=== PATIENT | female | born 1945 | race Caucasian/White ===

== ENCOUNTER 2017-12-31 01:34 | Observation (INO) | payer MEDICARE, OTHER ==
--- NOTE | 2017-12-27 19:41 | HISTORY AND PHYSICAL ---
DATE OF ADMISSION: December 31, 2017 IDENTIFICATION AND CHIEF COMPLAINT Livia is a 72-year-old woman with the chief complaint of right knee pain. HISTORY OF PRESENT ILLNESS The patient has a longstanding history of knee arthritis, progressively painful and debilitating, refractory to conservative care. Surgery is indicated to relieve symptoms after failure of nonoperative measures. PAST MEDICAL HISTORY 1. Hypertension. 2. Chronic renal insufficiency. PAST SURGICAL HISTORY Notable for ankle surgery. FAMILY HISTORY Notable for mother with stroke. SOCIAL HISTORY Negative for tobacco and alcohol use. ALLERGIES None. CURRENT MEDICATIONS 1. Benazepril 5 mg p.o. q. day. 2. Furosemide 40 mg p.o. b.i.d. 3. Allopurinol 100 mg p.o. q. day. 4. Gemfibrozil 600 mg b.i.d. 5. Various vitamins. 6. A baby aspirin a day. PHYSICAL EXAMINATION GENERAL: Healthy female. HEENT: Normocephalic, atraumatic. NECK: Supple. LUNGS: Clear. HEART: Regular. ABDOMEN: Soft. ORTHOPEDIC: The knee is stiff. She has an effusion present. Gross stability is good. Extensor function is intact. Radiographs demonstrate end-stage arthritis. ASSESSMENT Right knee degenerative joint disease, progressively painful and debilitating, refractory to conservative care. PLAN Per patient request, we are going to proceed with knee replacement. The nature of this procedure, risks, benefits, and anticipated rehab course were reviewed. The risks of the procedure include, but are not limited to , major medical or anesthetic complication, infection, neurovascular injury, blood transfusion, stiffness, scarring, fracture, tendon rupture, instability, implant loosening, migration, or failure, persistent or recurrent pain, need for additional surgery, and other unforeseen. She understands and wishes to proceed. Signed permit is placed in chart. No guarantees given or implied. [facility] CENTERDennis
[2017-12-30 13:28] LABS: INR 1.01
[2017-12-31] VITALS (10 sets, daily range): BP systolic 115–143; BP diastolic 55–77
[~2017-12-31] VITALS: Ht 160 cm; Wt 103.0 kg
[~2017-12-31 01:34] MED LIST: ALLO-119 PO; ASPI-1471 PO; BENA5TAB32 PO; FURO-45 PO; GEMF600T91 PO; POTA10CA40 PO; TRAM-420 PO
[2017-12-31] MEDS: NORMOSOL R SOLN(*) 1000 ML BAG 1,000 ML IV PRN ×2 (10:46→11:51)
[2017-12-31] MEDS ORDERED: LIDOCAINE 2% IV 100 MG/5ML SYR ONE (10:48)
[2017-12-31] MEDS ORDERED: fentaNYL CITR 100 MCG/2 ML AMP ONE ×3 (10:48→14:12)
[2017-12-31] MEDS ORDERED: PROPOFOL EMUL(*) 10MG/ML 20 ML 20 ML ONE (10:49)
[2017-12-31] MEDS ORDERED: cloNIDine EPIDUR INJ 100MCG/ML 40 MCG, ROPIVACAINE 0.5% 20 ML VIAL 25 ML, EPINEPHrine H... INJ ONE (12:15)
[2017-12-31] MEDS ORDERED: FAMOTIDINE 20 MG TAB PO ONE (12:15)
[2017-12-31] MEDS ORDERED: ceFAZolin(*) 2GM/D5W 50ML 50 ML IVPB ONE (12:15)
[2017-12-31] MEDS ORDERED: LIDOCAINE/SOD BICARB 8.4% SYR ID ONE (12:15)
[2017-12-31] MEDS ORDERED: TRANEXAMIC AC 1000 MG/10ML SDV 1,000 MG in DEXTROSE 5% 50 ML BAG 50 ML IV ONE (12:15)
[2017-12-31] MEDS ORDERED: MIDAZOLAM 2 MG/2 ML VIAL IVP PRN (12:15)
[2017-12-31] MEDS ORDERED: ONDANSETRON 4 MG/2 ML VIAL ONE (13:10)
[2017-12-31] MEDS ORDERED: DEXAMETHASONE SOD PHOS 10MG/ML ONE (13:10)
[2017-12-31] MEDS ORDERED: BENZOCAINE/MENTHOL 1 EACH LOZG PO PRN (15:05)
[2017-12-31] MEDS ORDERED: ZOLPIDEM TARTRATE 5 MG TAB PO PRN (15:05)
[2017-12-31] MEDS ORDERED: FLUSH 10 ML SYR IVP PRN (15:05)
[2017-12-31] MEDS ORDERED: diphenhydrAMINE 50 MG/ML VIAL IVP PRN (15:05)
[2017-12-31] MEDS ORDERED: MAGNESIUM HYDROXIDE* 30ML UDCP PO PRN (15:05)
[2017-12-31] MEDS ORDERED: BISACODYL 10 MG SUPP PR PRN (15:05)
[2017-12-31] MEDS ORDERED: DIAZEPAM 5 MG TAB PO PRN (15:05)
[2017-12-31] MEDS ORDERED: diphenhydrAMINE 25 MG CAP PO PRN (15:05)
[2017-12-31] MEDS ORDERED: NORMOSOL R SOLN(*) 1000 ML BAG 1,000 ML IV PRN (15:05)
[2017-12-31] MEDS ORDERED: PROMETHAZINE 25 MG/ML 1 ML AMP IVP PRN (15:05)
[2017-12-31] MEDS ORDERED: ACETAMINOPHEN 325 MG TAB PO PRN (15:05)
--- NOTE | 2017-12-31 15:50 | RADIOLOGY IMAGING REPORT ---
FACILITY: [facility] PATIENT NAME: Livia Perdomo : 1945 MR: [id number] V: [id number] EXAM DATE: ORDERING PHYSICIAN: LILIANA ARRIAGA TECHNOLOGIST: Location: [facility] Patient: Livia Perdomo : 1945 Visit/Account:[id number] Date of Sevice: 12/31/2017 Technique: KNEE LIMITED RIGHT HISTORY: Postop right knee arthroplasty Comparison studies: None FINDINGS: There is no acute fracture. Present is a right knee arthroplasty with gross anatomic align ment. Expected adjacent postoperative findings are noted. IMPRESSION: 1. Right knee arthroplasty without evidence of acute hardware complication. Report Dictated By: Radames Cheng DO at 12/31/2017 3:43 PM Report E-Signed By: Radames Cheng DO at 12/31/2017 3:44 PM WSN:[email or web address]
[2017-12-31] MEDS: CELECOXIB 200 MG CAP PO SCH (17:26)
[2017-12-31] MEDS: POTASSIUM CHL 20 MEQ TABCR PO SCH (17:26)
--- NOTE | 2017-12-31 17:37 | Hospitalist Consultation ---
History of Present Illness Requesting Physician Liliana Arriaga MD Reason for Consult Post-op medical management Chief Complaint R-knee pain History of Present Illness Mrs. Perdomo is a 72-year-old woman with PMH of HTN, CKD-III, Gout, Hypertriglyceridemia and the patient has a longstanding history of knee arthritis, progressively painful and debilitating, refractory to conservative care. Surgery is indicated to relieve symptoms after failure of nonoperative measures. I was asked to evaluate this patient for her medical problems during this hospital stay. She complaints of right knee pain. I have reviewed her medical record and her current home medications are: 1. Benazepril 5 mg p.o. q. day. 2. Furosemide 40 mg p.o. b.i.d. 3. Allopurinol 100 mg p.o. q. day. 4. Gemfibrozil 600 mg b.i.d. 5. Various vitamins. 6. Aspirin 81mg a day. 7. KCL 10meq daily History Home Meds Reported Medications Aspirin (ASPIR 81) 81 Mg Tablet.dr, 81 MG PO QDAY, TAB 12/24/17 Tramadol Hcl (TRAMADOL HCL) 50 Mg Tablet, 50-100 MG PO Q4-6H Y for PAIN, TAB 12/24/17 Gemfibrozil (GEMFIBROZIL) 600 Mg Tablet, 600 MG PO BID 12/24/17 Allopurinol (ZYLOPRIM) 300 Mg Tablet, 100 MG PO DAILY, TAB 12/24/17 Furosemide (FUROSEMIDE) 20 Mg Tablet, 1 TAB PO BID, TAB 12/24/17 Benazepril Hcl (BENAZEPRIL HCL) 5 Mg Tablet, 5 MG PO QDAY, TAB 12/24/17 Potassium Chloride (POTASSIUM CHLORIDE) 10 Meq Capsule.er, 10 MEQ PO DAILY 12/24/17 Allergies: Coded Allergies: No Known Drug Allergies (Unverified , 12/24/17) Patient History: FH: Alzheimers disease FATHER, FH: dementia FATHER, FH: stroke MOTHER, Hx Smoking: No Smoking Status: Never Smoker Caffeine Intake: Coffee Hx Alcohol Use: No Hx Substance Use Disorder: No Social Drug Use: Never History of IV Drug Use: No Review of Systems Constitutional: No Fever, No Weight Loss, No Weight Gain, No Chills Neurological: No Confusion, No Weakness, No Dizziness Cardiovascular: No Chest Pain, No Palpitations Respiratory: No Shortness of Breath, No Cough, No Wheezing Gastrointestinal: No Nausea, No Vomiting, No Diarrhea, No Constipation, No Abdominal Pain Genitourinary: No Dysuria, No Hematuria Musculoskeletal: Pain, Impaired Mobility, No Sprain, No Strain Psychiatric: No Depression, No Anxiety Exam Vital Signs Vital Signs Date Time Temp Pulse Resp B/P (MAP) Pulse Ox O2 Delivery O2 Flow Rate FiO2 12/31/17 16:25 74 14 95 12/31/17 16:25 Nasal Cannula 1.0 12/31/17 11:02 98.7 143/72 (95) General Appearance: Alert, Awake, No Acute Distress, Afebrile Neuro: No Gross deficits Cardiovascular: Normal Rhythm & Peripheral Pulses Respiratory: No Respiratory Distress GI: Abd Soft and Non-Tender Extremities: Soft and Non Tender (R-knee pain) Psych: Alert & Oriented X3, Appropriate Mood & Affect Medical Decision Making Pre-Admit Course Medical Record Review: Yes Assessment and Plan Problems: (1) Total knee replacement status Status: Acute Assessment & Plan: Aspirin 325mg po daily for DVT prophylaxis and I will hold her [id number] ROM, PT/OT and other surgical management per surgery (2) Chronic kidney disease (CKD) Status: Chronic Assessment & Plan: I will hold her Lasix during her stay and I have advised her to use Lasix as needed to protect her kidneys. She is on ACEI (3) Hypertension Status: Chronic Assessment & Plan: I will continue ACEI, Lisinopril 5mg po qd. I will also use KCL 20meq daily for her low K level 3.4 Condition stable Time Spent on Plan of Care: < 30 min Copies to: LILIANA ARRIAGA MD Venous Thromboembolism VTE Risk Physician Assess for VTE Risk: Yes Patient's VTE Risk: High VTE Diagnostic Test 2 Days Prior to Admit: No Antithrombotics Is Pt On Any Antithrombotics?: No Problem Qualifiers (1) Total knee replacement status: Laterality: right Qualified Codes: Z96.651 - Presence of right artificial knee joint (2) Chronic kidney disease (CKD): Chronic kidney disease stage: stage 3 (moderate) Qualified Codes: N18.3 - Chronic kidney disease, stage 3 (moderate) (3) Hypertension: Hypertension type: essential hypertension Qualified Codes: I10 - Essential ( primary) hypertension JOSE MIGUEL VENTURA MD Dec 31, 2017 17:37
[2017-12-31] MEDS: APAP/HYDROCODONE 325/7.5 TAB PO PRN (20:09)
[2017-12-31] MEDS: GEMFIBROZIL 600 MG TAB PO SCH (20:55)
[2017-12-31] MEDS: ceFAZolin(*) 1 GM VIAL 1 GM in NS(*) 0.9% 100 ML ADDVANT BAG 100 ML IVPB SCH (20:56)
[2017-12-31] MEDS ORDERED: NS(*) 0.9% 500 ML BAG 500 ML IV ONE (21:00)
--- NOTE | 2017-12-31 23:03 | OPERATIVE REPORT 1 ---
EVENT DATE: December 31, 2017 SURGEON: Fredi Garcia MD ANESTHESIOLOGIST: Williams Jacob MD ANESTHESIA: General plus spinal. ORTHOPEDIC SPECIALIST: NUBIA Brandt PREOPERATIVE DIAGNOSIS Right knee degenerative joint disease. POSTOPERATIVE DIAGNOSIS Right knee degenerative joint disease. PROCEDURE PERFORMED Right total knee arthroplasty. ESTIMATED BLOOD LOSS Minimal. DRAINS None. SPECIMENS None. COMPLICATIONS None apparent. TOURNIQUET TIME 15 minutes IMPLANTS USED AndroJekathlon knee system with a 4 right PS femur, 4 standard tibial baseplate, 36 mm universal, symmetric, all-polyethylene patellar button, and a 13 mm PS tibial tray liner, polyethylene X3. INDICATIONS Livia is a 72-year-old woman with intractable pain and disability related to end -stage knee arthritis. Surgery is indicated to relieve symptoms after failure of nonoperative measures. DESCRIPTION OF PROCEDURE The patient was taken to the operating room and placed supine on the operating table. General anesthesia was induced. Antibiotics were administered IV along with TXA. The right lower extremity was prepped and draped in the usual sterile fashion for orthopedic surgery. The limb was exsanguinated with an Esmarch bandage. The tourniquet was inflated to 275 mmHg. A midline longitudinal incision was made and carried down through the skin and subcutaneous tissue to the extensor mechanism. Full-thickness flaps were developed far enough medially to allow medial parapatellar arthrotomy be performed. The patella was everted, and the knee was put into the flexed position. The fat pad, anterior horn, the menisci, and the cruciate ligaments were debrided. A subperiosteal medial release was initiated in a titrated fashion to start to balance the knee. A step drill was used to enter the distal femur. A 10 cm alignment guide was used to engage the isthmus. The cut was set for 6 degrees of valgus relative to the anatomic axis. A 10 mm resection block was applied, pinned, and cuts made with an oscillating saw. AP sizing guide was applied to the distal femoral cut and positioned for 3 degrees of external rotation relative to the posterior condyles. The size 4 was optimal without risk of notching. The four-in-one cutting block was applied, and the anterior, posterior, posterior chamfer, and anterior chamfer cuts were made respectively. The PS block was applied and centered. Medial and lateral bone was removed from the block. The trial femur had nice [id number] fit. Attention was turned to tibial preparation. The extramedullary guide was applied and positioned for varus, valgus, posterior slope, and rotation. This was set to resect 9 mm from the relatively deficit lateral tibial plateau. It was dropped down a millimeter or two to assure an adequate cut. The block was pinned, alignment was checked with an extramedullary jeremiah, and the cuts made with an oscillating saw. Additional osteophytes were removed and a bit of additional titrated medial release so the gaps were balanced and symmetric. The size 4 tibial baseplate provided optimal bony coverage without soft tissue overhang. This was inserted along with a trial liner and trial femur. The knee was brought to extension. The patella was taken from a starting thickness of 22 to a residual of 15 with a patellar clamp and oscillating saw. A 36 provided optimal bony coverage without soft tissue overhang. Lug holes were drilled. The patella tracked nicely with only release of a couple lateral bands. No formal lateral release was required. Tracking was with the no-touch technique. Final tibial preparation consisted of assuring appropriate rotational and translational position of the component. The boss was reamed. The fin was punched. The surfaces were copiously lavaged. All components were cemented in a single stage. Once the cement had fully polymerized, the tourniquet was deflated. Hemostasis was assured. The wound was copiously lavaged. All loose debris was removed. The 13 PS tibial tray liner filled up the gap ideally without allowing the knee to hyperextend. The knee dropped fully to full extension, and soft tissue tension and stability are ideal. The tray was lavaged and dried, and the actual liner was locked into the baseplate. The joint was reduced. The arthrotomy was closed in flexion with #2 Ethibond , the subcutaneous tissue with 3-0 Vicryl, and the skin with surgical hayley. Xeroform and 4 x 4's applied as a dry, sterile dressing and a compression wrap. The patient was awakened from anesthesia and taken to recovery in stable condition having tolerated the procedure well. PLAN The plan is for standard TKA rehab protocol. TRELL
[2018-01-01] MEDS: APAP/HYDROCODONE 325/7.5 TAB PO PRN ×5 (00:07→22:41)
[2018-01-01 04:52] VITALS: BP 121/65
[2018-01-01] MEDS: ceFAZolin(*) 1 GM VIAL 1 GM in NS(*) 0.9% 100 ML ADDVANT BAG 100 ML IVPB SCH ×2 (04:56→12:52)
[2018-01-01 05:24] LABS: PLATELET COUNT, AUTOMATED 198 K/uL (150-450)
[2018-01-01 09:00] VITALS: Ht 160 cm; Wt 103.0 kg
[2018-01-01] MEDS: ALLOPURINOL 100 MG TAB PO SCH (09:30)
[2018-01-01] MEDS: ASPIRIN 325 MG TAB PO SCH (09:30)
[2018-01-01] MEDS: POTASSIUM CHL 20 MEQ TABCR PO SCH (09:30)
[2018-01-01] MEDS: GEMFIBROZIL 600 MG TAB PO SCH ×2 (09:30→20:54)
[2018-01-01] MEDS: LISINOPRIL 5 MG TAB PO SCH (09:31)
[2018-01-01] MEDS: CELECOXIB 200 MG CAP PO SCH ×2 (09:31→17:19)
--- NOTE | 2018-01-01 09:45 | Hospitalist Progress Note ---
Subjective Progress Notes Subjective Mrs. Perdomo is a 72-year-old woman with PMH of HTN, CKD-III, Gout, Hypertriglyceridemia and the patient has a longstanding history of knee arthritis, progressively painful and debilitating, refractory to conservative care. Surgery is indicated to relieve symptoms after failure of nonoperative measures. I was asked to evaluate this patient for her medical problems during this hospital stay. She complaints of right knee pain. I have reviewed her medical record and her current home medications are: 1. Benazepril 5 mg p.o. q. day. 2. Furosemide 40 mg p.o. b.i.d. 3. Allopurinol 100 mg p.o. q. day. 4. Gemfibrozil 600 mg b.i.d. 5. Various vitamins. 6. Aspirin 81mg a day. 7. KCL 10meq daily 01/01: She is doing better and receiving her therapies and ROM. She is afebrile and hemodynamically stable and without complaint. Patient Complains of: Neurological: No: Confusion, Weakness, Dizziness Cardiovascular: No: Chest Pain, Palpitations Respiratory: No: Cough, Congestion, Shortness of Breath Gastrointestinal: No Nausea, No Vomiting Genitourinary: No Dysuria, No Hematuria Musculoskeletal: Pain, Impaired Mobility, No: Sprain, Strain Physical Exam Vital Signs Date Time Temp Pulse Resp B/P (MAP) Pulse Ox O2 Delivery O2 Flow Rate FiO2 01/01/18 04:52 97.7 69 12 121/65 (83) 97 Nasal Cannula 1.0 General Appearance: Alert, Awake, No Acute Distress, Afebrile Neuro: No Gross deficits Eyes: PERRLA ENT: Normal Cardiovascular: No Edema, No JVD Respiratory: No Respiratory Distress GI: Soft and Non-Tender Extremities: Soft and Non Tender (tender R-LE) Psych: Alert & Oriented X3, Appropriate Mood & Affect Result Diagram: 01/01/18 0506 Assessment and Plan Problems: (1) Total knee replacement status Status: Acute Assessment & Plan: Aspirin 325mg po daily for DVT prophylaxis and I will hold her [id number] ROM, PT/OT and other surgical management per surgery 01/01: management as per surgery (2) Chronic kidney disease (CKD) Status: Chronic Assessment & Plan: I will hold her Lasix during her stay and I have advised her to use Lasix as needed to protect her kidneys. She is on ACEI 01/01: I will start her on Lasix but as needed for her legs edema and KCL 10meq po qd (3) Hypertension Status: Chronic Assessment & Plan: I will continue ACEI, Lisinopril 5mg po qd. I will also use KCL 20meq daily for her low K level 3.4 01/01: I will continue her current management, BP 121/65 Condition stable Time Spent on Plan of Care: < 30 min Copies to: LILIANA ARRIAGA MD Exam Sepsis Risk: No Definite Risk Problem Qualifiers (1) Total knee replacement status: Laterality: right Qualified Codes: Z96.651 - Presence of right artificial knee joint (2) Chronic kidney disease (CKD): Chronic kidney disease stage: stage 3 (moderate) Qualified Codes: N18.3 - Chronic kidney disease, stage 3 (moderate) (3) Hypertension: Hypertension type: essential hypertension Qualified Codes: I10 - Essential ( primary) hypertension JOSE MIGUEL VENTURA MD Jan 01, 2018 09:45
[2018-01-01 10:54] VITALS: BP 127/55
[2018-01-01 14:47] VITALS: BP 124/52
[2018-01-01 19:41] VITALS: BP 120/47
[2018-01-01 23:31] VITALS: BP 118/50
[2018-01-02 03:59] VITALS: BP 125/64
[2018-01-02] MEDS: APAP/HYDROCODONE 325/7.5 TAB PO PRN ×2 (06:07→10:19)
[2018-01-02] MEDS ORDERED: HYDR-4308 PO (08:14)
[2018-01-02] MEDS ORDERED: ASPI-764 PO (08:15)
[2018-01-02 09:13] VITALS: BP 136/62
[2018-01-02] MEDS: ALLOPURINOL 100 MG TAB PO SCH (09:18)
[2018-01-02] MEDS: ASPIRIN 325 MG TAB PO SCH (09:18)
[2018-01-02] MEDS: CELECOXIB 200 MG CAP PO SCH (09:18)
[2018-01-02] MEDS: POTASSIUM CHL 20 MEQ TABCR PO SCH (09:18)
[2018-01-02] MEDS: LISINOPRIL 5 MG TAB PO SCH (09:18)
[2018-01-02] MEDS: GEMFIBROZIL 600 MG TAB PO SCH (09:18)
[2018-01-02] MEDS ORDERED: ASPI-757 PO (10:41)
--- NOTE | 2018-01-02 10:43 | Hospitalist Progress Note ---
Subjective Progress Notes Subjective This patient was admitted for knee replacement. She had no acute issues overnight. Patient Complains of: Cardiovascular: No: Chest Pain Respiratory: No: Shortness of Breath Physical Exam Vital Signs Date Time Temp Pulse Resp B/P (MAP) Pulse Ox O2 Delivery O2 Flow Rate FiO2 01/02/18 09:17 92 Room Air 01/02/18 09:13 98.5 78 16 136/62 (86) 01/02/18 03:59 1.0 Intake and Output 01/03/18 07:00 Intake Total 120 ml Balance 120 ml Intake Oral 120 ml Neuro: No Gross deficits Cardiovascular: Regular Rate and Rhythm Respiratory: Clear to Auscultation Extremities: No Edema Integumentary: No Cyanosis Result Diagram: 01/01/18 0503 Assessment and Plan Problems: (1) Total knee replacement status Status: Acute Assessment & Plan: She is on aspirin prophylaxis. (2) Hypertension Status: Chronic Assessment & Plan: She is on chronic treatment with benazepril and Lasix. Exam Sepsis Risk: No Definite Risk Problem Qualifiers (1) Total knee replacement status: Laterality: right Qualified Codes: Z96.651 - Presence of right artificial knee joint (2) Hypertension: Hypertension type: essential hypertension Qualified Codes: I10 - Essential ( primary) hypertension ADA WOLFF DO Jan 02, 2018 10:43
== END 2018-01-02 10:38 ==
LOC: OR 01:34 → MED 16:25
PROVIDERS: ADMIT Orthopaedic Surgery; ATTEND Orthopaedic Surgery
DX: M17.11 Unilateral primary osteoarthritis, right knee (principal); I10 Essential (primary) hypertension; I12.9 Hypertensive chronic kidney disease with stage 1 through stage 4 chronic kidney disease, or unspecified chronic kidney disease; N18.9 Chronic kidney disease, unspecified
CPT/HCPCS: 27447; 36415; 73560; 85025; 85610; 86850; 86900; 86901; 97116; 97161; 97530; A9270; C1713; C1776; G0378; J0171; J0690; J0735; J1100; J1885; J2001; J2250; J2405; J2704; J2795; J3010; J7040; J7050; J7060; Q0163

== ENCOUNTER 2018-03-11 00:27 | Observation (INO) | payer MEDICARE, OTHER ==
[2018-03-10 13:31] LABS: INR 1.05
[~2018-03-11] VITALS: Ht 162.6 cm; Wt 106.1 kg
[2018-03-11] VITALS (10 sets, daily range): BP systolic 109–154; BP diastolic 52–73
[~2018-03-11 00:27] MED LIST changes: +ASPI-757 PO; +ASPI-764 PO; +CAL25 PO; +HYDR-4308 PO; +MIDAZOLAM 2 MG/2 ML VIAL IVP PRN
[2018-03-11] MEDS ORDERED: MIDAZOLAM 2 MG/2 ML VIAL IVP PRN (05:30)
[2018-03-11] MEDS ORDERED: ceFAZolin(*) 2GM/D5W 50ML 50 ML IVPB ONE (07:45)
[2018-03-11] MEDS ORDERED: ACETAMINOPHEN 500 MG TAB PO ONE (07:45)
[2018-03-11] MEDS ORDERED: CELECOXIB 200 MG CAP PO ONE (07:45)
[2018-03-11] MEDS ORDERED: NORMOSOL R SOLN(*) 1000 ML BAG 1,000 ML IV PRN ×2 (07:45→12:05)
[2018-03-11] MEDS ORDERED: TRANEXAMIC AC 1000 MG/10ML SDV 1,000 MG in DEXTROSE 5% 50 ML BAG 50 ML IV ONE (07:45)
[2018-03-11] MEDS ORDERED: LIDOCAINE/SOD BICARB 8.4% SYR ID ONE (07:45)
[2018-03-11] MEDS ORDERED: PREGABALIN 75 MG CAPSULE PO ONE (07:45)
[2018-03-11] MEDS ORDERED: FAMOTIDINE 20 MG TAB PO ONE (07:45)
[2018-03-11] MEDS ORDERED: cloNIDine EPIDUR INJ 100MCG/ML 40 MCG, ROPIVACAINE 0.5% 20 ML VIAL 25 ML, EPINEPHrine H... INJ ONE (07:45)
[2018-03-11] MEDS ORDERED: fentaNYL CITR 100 MCG/2 ML AMP ONE (07:47)
[2018-03-11] MEDS ORDERED: LIDOCAINE MPF 1% 5 ML VIAL ONE (07:48)
[2018-03-11] MEDS ORDERED: PROPOFOL EMUL(*) 10MG/ML 20 ML 20 ML ONE (07:48)
[2018-03-11] MEDS ORDERED: DEXAMETHASONE SOD PHOS 10MG/ML ONE (07:48)
[2018-03-11] MEDS ORDERED: ONDANSETRON 4 MG/2 ML VIAL ONE (07:48)
[2018-03-11] MEDS ORDERED: PHENYLEPHRINE 10 MG/1 ML VIAL ONE (08:09)
--- NOTE | 2018-03-11 08:36 | HISTORY AND PHYSICAL ---
DATE OF ADMISSION: March 11, 2018 IDENTIFICATION/CHIEF COMPLAINT Livia is a 9 HISTORY OF PRESENT ILLNESS [*] PAST MEDICAL HISTORY * [*] PAST SURGICAL HISTORY * [*] ALLERGIES [*] CURRENT MEDICATIONS * [*] SOCIAL HISTORY [*] FAMILY HISTORY [*] REVIEW OF SYSTEMS [*] PHYSICAL EXAMINATION [*] LABORATORY DATA [*] ASSESSMENT * [*] PLAN [*] MTDD
--- NOTE | 2018-03-11 08:42 | HISTORY AND PHYSICAL ---
DATE OF ADMISSION: March 11, 2018 IDENTIFICATION/CHIEF COMPLAINT Livia is a 72-year-old woman with the chief complaint of left knee pain. HISTORY OF PRESENT ILLNESS Patient has a long-standing history of knee arthritis, progressively painful and debilitating and refractory to conservative care. Surgery is indicated to relieve symptoms after failure of nonoperative measures. PAST MEDICAL HISTORY * Hypertension, controlled on medication. * Chronic renal insufficiency. PAST SURGICAL HISTORY * Ankle repair. ALLERGIES She has no known drug allergies. CURRENT MEDICATIONS * Potassium 10 mg p.o. q.day. * Benazepril 5 mg p.o. q.day. * Furosemide 40 mg p.o. q.day. * Allopurinol 100 mg p.o. q.day. * Gemfibrozil 600 mg b.i.d. * Various vitamins. * Baby aspirin a day. SOCIAL HISTORY Negative for tobacco and alcohol use. FAMILY HISTORY Notable for mother with stroke. REVIEW OF SYSTEMS Negative. PHYSICAL EXAMINATION: GENERAL: Livia is a healthyf female. She is obese. HEENT: Normocephalic, atraumatic. NECK: Supple. LUNGS: Clear. HEART: Regular. ABDOMEN: Soft. ORTHOPEDIC EXAM: The left knee has crepitus throughout. She has an effusion present. She stiff at the end range. Gross stability is good. Extensor function is intact. Skin is in good condition. IMAGING Radiographs demonstrate end-stage knee arthritis. ASSESSMENT Left knee end-stage degenerative joint disease, progressively painful and debilitating and refractory to conservative care. PLAN We are going not proceed with total knee arthroplasty per patient request. She has recently recovered from a right total knee arthroplasty back in December. The nature of the procedure, risks, benefits, the anticipated rehabilitative course were reviewed again. The risks include, but are not limited to , major medical or anesthetic complication, infection, neurovascular injury, blood transfusion, stiffness, scarring, fracture, tendon rupture or instability, implant loosening, migration or failure, persistent or recurrent pain, need for additional surgery and other unforeseen. She understands and wishes to proceed. A signed permit was placed in the chart. No guarantees are given or implied. TRELL
[2018-03-11] MEDS ORDERED: BISACODYL 10 MG SUPP PR PRN (12:05)
[2018-03-11] MEDS ORDERED: diphenhydrAMINE 50 MG/ML VIAL IVP PRN (12:05)
[2018-03-11] MEDS ORDERED: ZOLPIDEM TARTRATE 5 MG TAB PO PRN (12:05)
[2018-03-11] MEDS ORDERED: PROMETHAZINE 25 MG/ML 1 ML AMP IVP PRN (12:05)
[2018-03-11] MEDS ORDERED: diphenhydrAMINE 25 MG CAP PO PRN (12:05)
[2018-03-11] MEDS ORDERED: MAGNESIUM HYDROXIDE* 30ML UDCP PO PRN (12:05)
[2018-03-11] MEDS ORDERED: DIAZEPAM 5 MG TAB PO PRN (12:05)
[2018-03-11] MEDS ORDERED: ACETAMINOPHEN 325 MG TAB PO PRN (12:05)
[2018-03-11] MEDS ORDERED: FLUSH 10 ML SYR IVP PRN (12:05)
[2018-03-11] MEDS ORDERED: BENZOCAINE/MENTHOL 1 EACH LOZG PO PRN (12:05)
--- NOTE | 2018-03-11 12:20 | RADIOLOGY IMAGING REPORT ---
FACILITY: [facility] PATIENT NAME: Livia Perdomo : 1945 MR: [id number] V: [id number] EXAM DATE: ORDERING PHYSICIAN: LILIANA ARRIAGA TECHNOLOGIST: Location: [facility] Patient: Livia Perdomo : 1945 Visit/Account:[id number] Date of Sevice: 03/11/2018 Left knee Indication: Postop Comparison: X-rays from December 31 Findings: 2 views left knee were obtained. Stable alignment status post left total knee arthroplasty. Expected soft tissue findings with swelli ng and air in the joint space. Jacque overlie the skin. IMPRESSION: 1. Expected appearance status post left total knee arthroplasty Report Dictated By: Delvis Pablo MD at 03/11/2018 12:16 PM Report E-Signed By: Delvis Pablo MD at 03/11/2018 12:17 PM WSN:[email or web address]
--- NOTE | 2018-03-11 12:56 | Hospitalist Consultation ---
History of Present Illness Requesting Physician Dr. Garcia Reason for Consult Medical Management Chief Complaint s/p left total knee replacement History of Present Illness She was admitted s/p left total knee replacement. It is reported the surgery went well and without complication. History Problems: (1) Hypertension Status: Chronic Home Meds Reported Medications Calcitriol (CALCITRIOL) 0.25 Mcg Cap, 0.25 MCG PO M-W-F, CAP 03/04/18 Aspirin (ASPIR 81) 81 Mg Tablet.dr, 81 MG PO QDAY, TAB 03/04/18 Tramadol Hcl (TRAMADOL HCL) 50 Mg Tablet, 50-100 MG PO Q4-6H Y for PAIN, TAB 12/24/17 Gemfibrozil (GEMFIBROZIL) 600 Mg Tablet, 600 MG PO BID 12/24/17 Allopurinol (ZYLOPRIM) 300 Mg Tablet, 100 MG PO DAILY, TAB 12/24/17 Furosemide (FUROSEMIDE) 20 Mg Tablet, 1 TAB PO BID, TAB 12/24/17 Benazepril Hcl (BENAZEPRIL HCL) 5 Mg Tablet, 5 MG PO QDAY, TAB 12/24/17 Potassium Chloride (POTASSIUM CHLORIDE) 10 Meq Capsule.er, 10 MEQ PO DAILY 12/24/17 Discontinued Reported Medications Aspirin (ASPIRIN EC) 325 Mg Tablet.dr, 325 MG PO QDAY, #31 TAB For one month to prevent blood clots 01/02/18 Hydrocodone Bit/Acetaminophen (NORCO 7.5-325 TABLET) 1 Each Tablet, 1-2 TAB PO Q4-6H Y for PAIN, #80 01/02/18 Discontinued Scripts Aspirin (ASPIRIN) 325 Mg Tablet, 325 MG PO QDAY, #30 TAB Prov:ADA WOLFF DO 01/02/18 Allergies: Coded Allergies: No Known Drug Allergies (Unverified , 03/04/18) Patient History: FH: Alzheimers disease FATHER, FH: dementia FATHER, FH: stroke MOTHER, Hx Smoking: No Smoking Status: Never Smoker Caffeine Intake: Coffee Caffeine/Cups Per Day: NONE ON A REGULAR BASIS Hx Alcohol Use: No Hx Substance Use Disorder: No Social Drug Use: Never Review of Systems All Systems Reviewed/Normal: Yes, Except as Noted Exam Vital Signs Vital Signs Date Time Temp Pulse Resp B/P (MAP) Pulse Ox O2 Delivery O2 Flow Rate FiO2 03/11/18 12:07 97.8 70 16 131/63 (85 97 Nasal Cannula 2.0 General Appearance: Alert, Awake, No Acute Distress, Afebrile Neuro: No Gross deficits Cardiovascular: Regular Rate and Rhythm Respiratory: No Respiratory Distress, Clear to Auscultation Psych: Alert & Oriented X3, Appropriate Mood & Affect Assessment and Plan Problems: (1) Total knee replacement status Status: Acute Assessment & Plan: Followed by Dr. Garcia. She will be placed on Aspirin for DVT prophylaxis. She has no history of DVT or PE. (2) Hypertension Status: Chronic Assessment & Plan: She is on chronic treatment with Lasix and Benazepril. Both medications were restarted with hold parameters. Venous Thromboembolism Antithrombotics Is Pt On Any Antithrombotics?: No ANA PAULA [employer] Mar 11, 2018 12:56
[2018-03-11] MEDS: APAP/HYDROCODONE 325/7.5 TAB PO PRN ×2 (15:29→19:55)
[2018-03-11] MEDS: ceFAZolin(*) 1 GM VIAL 1 GM in NS(*) 0.9% 100 ML ADDVANT BAG 100 ML IVPB SCH (17:08)
[2018-03-12] VITALS (7 sets, daily range): BP systolic 129–158; BP diastolic 55–67; Ht 162.6 cm; Wt 106.1 kg
[2018-03-12] MEDS: ceFAZolin(*) 1 GM VIAL 1 GM in NS(*) 0.9% 100 ML ADDVANT BAG 100 ML IVPB SCH ×2 (00:33→08:57)
[2018-03-12] MEDS: APAP/HYDROCODONE 325/7.5 TAB PO PRN ×5 (01:47→19:24)
--- NOTE | 2018-03-12 04:07 | OPERATIVE REPORT 1 ---
EVENT DATE: March 11, 2018 SURGEON: Fredi Garcia MD ANESTHESIOLOGIST: Negro Brasher MD ANESTHESIA: General plus spinal. FRENCH INSTRUCTOR: Laith Ariza PA-C PREOPERATIVE DIAGNOSIS Left knee degenerative joint disease. POSTOPERATIVE DIAGNOSIS Left knee degenerative joint disease. PROCEDURE PERFORMED Left total knee arthroplasty. ESTIMATED BLOOD LOSS Minimal. DRAINS None. SPECIMENS None. COMPLICATIONS No apparent. TOURNIQUET TIME 48 minutes. IMPLANTS USED [employer] Triathlon Knee System, a 3 left PS femur, 4 standard tibial base plate, 33 mm Mcclure symmetric all-polyethylene patellar button and a 9 mm PS tibial tray liner. Polyethylene is X3. INDICATIONS Livia is a 72-year-old woman with intractable pain related to end-stage left knee arthritis. Surgery is indicated to relieve symptoms after failure of nonoperative measures. DESCRIPTION OF PROCEDURE Patient is taken to the operating room, placed supine on the operating room table. General anesthesia induced after spinal block is administered by the anesthesiologist. Antibiotics were administered IV. Left lower extremity is prepped and draped in usual sterile fashion for knee arthroplasty. Limb is exsanguinated with an Esmarch bandage, tourniquet inflated to 275 mmHg. Midline longitudinal incision is made, carried down through the skin and subcu to the extensor mechanism. Full thickness flap is developed far enough medially to allow medial parapatellar arthrotomy to be performed. Patella is everted. Knee is brought into flexed position. Fat pad, anterior horns of the menisci and the cruciate ligaments are debrided Subperiosteal medial release is initiated in titrated fashion to start to balance the knee. Step-drill is used to enter the distal femur. A 10 inch long alignment guide is used to engage the isthmus. Cut is set for 6 degrees valgus relative to the anatomic axis. A 10 mm resection block is applied and pinned. Cuts are made with an oscillating saw. AP sizing guide is applied to the distal femoral cut, positioned for 3 degrees of external rotation relative to the posterior condyles. The size 3 is optimal without risk of notching. 4-in-1 cutting block is applied. Anterior, posterior, posterior chamfer and anterior chamfer cuts are made respectively. PS box is applied, centered, medial and lateral bone is removed from the box. Trial femur has nice line to line fit. Attention is turned to tibial preparation. Extramedullary guide is applied, positioned for varus, valgus, posterior slope and rotation. This is set to resect 9 mm from the relatively intact lateral tibial plateau. It is dropped down another millimeter or so to ensure an adequate cut. Block is pinned. Extramedullary alignment check is made. Cuts are made with an oscillating saw. After osteophyte removal, a bit of additional release is required medially to balance and create rectangular and even gaps. The size 4 provides optimum bony coverage without soft tissue overhang. This is inserted along with a trial femur. Knee is brought to full extension. In order to achieve full extension, a bit of stripping of the posterior capsule is required posteromedially. This is performed with a [employer] elevator. Subsequently, the knee drops out to full extension, is well balanced. The patella is everted, taken from a starting thickness of 22 to residual of 14 with a patellar clamp and oscillating saw. A 33 provides optimum bony coverage without soft tissue overhang. Lug holes are drilled. Patella tracks nicely with a no touch technique. Final tibial preparation consists of ensuring appropriate rotational and translational position of the component. The box is reamed. Fin is punched. Surfaces are lavaged. A mix of methacrylate is made, and the components are cemented in a single stage. When the cement is fully polymerized, tourniquet is deflated. Hemostasis is ensured. The 9 PS tibial tray liner fills up the gap ideally, allowing the knee to drop to full extension without hyperextension, providing optimal soft tissue balance and stability. The tray is lavaged and dried. The actual liner is locked into the base plate. Joint is reduced. Arthrotomy is closed in flexion with #2 Ethibond, subcu with 3-0 Vicryl, skin with surgical hayley. Xeroform to Profore, dry sterile dressing, compression wrap. Patient awakened from anesthesia and taken to recovery room in stable condition, having tolerated procedure well. Plan is for standard [facility] rehab protocol. [facility]
[2018-03-12] MEDS: POTASSIUM CHL 10 MEQ TABCR PO SCH (08:57)
[2018-03-12] MEDS: ALLOPURINOL 100 MG TAB PO SCH (08:58)
[2018-03-12] MEDS: ASPIRIN 325 MG TAB PO SCH (08:58)
[2018-03-12] MEDS: GEMFIBROZIL 600 MG TAB PO SCH ×2 (08:58→21:42)
[2018-03-12] MEDS: BENAZEPRIL HCL 10 MG TAB PO SCH (08:58)
[2018-03-12] MEDS: FUROSEMIDE 20 MG TAB PO SCH ×2 (09:00→21:45)
--- NOTE | 2018-03-12 10:17 | Hospitalist Progress Note ---
Subjective Progress Notes Subjective She has no concerns this morning. She had no acute events overnight. Patient Complains of: Cardiovascular: No: Chest Pain Respiratory: No: Shortness of Breath Physical Exam Vital Signs Date Time Temp Pulse Resp B/P (MAP) Pulse Ox O2 Delivery O2 Flow Rate FiO2 03/12/18 07:40 95 03/12/18 07:36 Room Air 03/12/18 07:31 98.9 71 14 142/67 (92) 03/12/18 05:50 1.0 Intake and Output 03/13/18 06:59 Intake Total 0 ml Balance 0 ml Intake Oral 0 ml General Appearance: Alert, Awake, No Acute Distress, Afebrile Neuro: No Gross deficits Cardiovascular: Regular Rate and Rhythm Respiratory: No Respiratory Distress, Clear to Auscultation GI: Soft and Non-Tender Psych: Alert & Oriented X3, Appropriate Mood & Affect Assessment and Plan Problems: (1) Total knee replacement status Status: Acute Assessment & Plan: Followed by Dr. Garcia. She will be placed on Aspirin for DVT prophylaxis. She has no history of DVT or PE. (2) Hypertension Status: Chronic Assessment & Plan: She is on chronic treatment with Lasix and Benazepril. Both medications were restarted with hold parameters. Exam Sepsis Risk: No Definite Risk ANA PAULA KERRP Mar 12, 2018 10:17
[2018-03-13 00:08] VITALS: BP 149/60
[2018-03-13] MEDS: APAP/HYDROCODONE 325/7.5 TAB PO PRN ×3 (00:51→12:53)
[2018-03-13 04:02] VITALS: BP 144/66
[2018-03-13 07:27] VITALS: BP 155/64
[2018-03-13] MEDS: ASPIRIN 325 MG TAB PO SCH (08:44)
[2018-03-13] MEDS: ALLOPURINOL 100 MG TAB PO SCH (08:44)
[2018-03-13] MEDS: FUROSEMIDE 20 MG TAB PO SCH (08:44)
[2018-03-13] MEDS: BENAZEPRIL HCL 10 MG TAB PO SCH (08:44)
[2018-03-13] MEDS: POTASSIUM CHL 10 MEQ TABCR PO SCH (08:44)
[2018-03-13] MEDS: GEMFIBROZIL 600 MG TAB PO SCH (08:45)
[2018-03-13] MEDS ORDERED: ASPI-757 PO (10:06)
--- NOTE | 2018-03-13 11:21 | Hospitalist Progress Note ---
Subjective Progress Notes Subjective She has no concerns this morning. She had no acute events overnight. Patient Complains of: Cardiovascular: No: Chest Pain Respiratory: No: Shortness of Breath Physical Exam Vital Signs Date Time Temp Pulse Resp B/P (MAP) Pulse Ox O2 Delivery O2 Flow Rate FiO2 03/13/18 07:34 90 03/13/18 07:34 Room Air 03/13/18 07:27 98.4 79 12 155/64 (94) 03/13/18 04:02 0.5 Intake and Output 03/14/18 06:59 Intake Total 700 ml Balance 700 ml Intake Oral 700 ml # Voids 1 General Appearance: Alert, Awake, No Acute Distress, Afebrile Neuro: No Gross deficits Cardiovascular: Regular Rate and Rhythm Respiratory: No Respiratory Distress, Clear to Auscultation GI: Soft and Non-Tender Psych: Alert & Oriented X3, Appropriate Mood & Affect Assessment and Plan Problems: (1) Total knee replacement status Status: Acute Assessment & Plan: Followed by Dr. Garcia. She will be placed on Aspirin for DVT prophylaxis. She has no history of DVT or PE. (2) Hypertension Status: Chronic Assessment & Plan: She is on chronic treatment with Lasix and Benazepril. Both medications were restarted with hold parameters. Exam Sepsis Risk: No Definite Risk ANA PAULA KERRP Mar 13, 2018 11:21
[2018-03-13] MEDS ORDERED: HYDR-4308 PO (11:45)
== END 2018-03-13 12:28 ==
LOC: OR 00:27 → MED 12:00
PROVIDERS: ADMIT Orthopaedic Surgery; ATTEND Orthopaedic Surgery
DX: M17.12 Unilateral primary osteoarthritis, left knee (principal); I12.9 Hypertensive chronic kidney disease with stage 1 through stage 4 chronic kidney disease, or unspecified chronic kidney disease; N18.9 Chronic kidney disease, unspecified
CPT/HCPCS: 27447; 36415; 73560; 85610; 86850; 86900; 86901; 97110; 97116; 97161; 97530; A9270; C1713; C1776; G0378; J0171; J0690; J0735; J1100; J1885; J2001; J2250; J2370; J2405; J2704; J2795; J3010; J7050; J7060